=== PATIENT | female | born 1955 | race Caucasian/White ===

== ENCOUNTER 2022-11-07 19:54 | Emergency (ER) | payer BC ==
[~2022-11-07] VITALS: Ht 160 cm; Wt 54.4 kg
[2022-11-07 20:06] VITALS: BP_SYST 155; PULSE 69; RESP 20; TEMP 97.2; O2SAT 97
[2022-11-07 21:50] VITALS: BP_SYST 125; PULSE 64; RESP 17; TEMP 98; O2SAT 97
== END 2022-11-07 21:50 | disposition home or self-care (01) ==
LOC: SED 19:54
DX: H53.8 Other visual disturbances (principal); I10 Essential (primary) hypertension; Z88.6 Allergy status to analgesic agent; Z79.899 Other long term (current) drug therapy
CPT/HCPCS: 99284

== ENCOUNTER 2023-10-20 10:57 | Emergency (ER) | payer OTHER, BC ==
[~2023-10-20] VITALS: Ht 160 cm; Wt 54.4 kg
[2023-10-20 11:08] VITALS: BP_SYST 138; PULSE 80; RESP 16; TEMP 98; O2SAT 97
[2023-10-20 11:46] VITALS: BP_SYST 132; PULSE 82; RESP 19; TEMP 98; O2SAT 99
== END 2023-10-20 17:32 | disposition home or self-care (01) ==
LOC: SED 10:57
DX: S61.012A Laceration without foreign body of left thumb without damage to nail, initial encounter (principal); I10 Essential (primary) hypertension; Z88.8 Allergy status to other drugs, medicaments and biological substances; W45.8XXA Other foreign body or object entering through skin, initial encounter; Y93.89 Activity, other specified; Y92.89 Other specified places as the place of occurrence of the external cause; Y99.8 Other external cause status
CPT/HCPCS: 99282